=== PATIENT | female | born 1985 | race African-American/Black ===

== ENCOUNTER 2017-01-14 01:13 | Emergency (ER) | payer MEDICAID ==
[~2017-01-14] VITALS: Ht 170.2 cm; Wt 91.0 kg
[~2017-01-14 01:13] MED LIST: trimethoprim
[2017-01-14 01:53] VITALS: BP 138/99
[2017-01-14] MEDS ORDERED: TETANUS, DIPHTHERIA, PERTUSSIS VAC/PF 0.5ML (>7YR OLD) IM ONE (02:30)
[2017-01-14] MEDS ORDERED: LIDOCAINE HCL/EPINEPHRINE 1%-EPI 1:100,000 20 ML VIAL MC ONE (02:30)
[2017-01-14] MEDS ORDERED: ACETAMINOPHEN 325MG TABLET PO ONE (02:30)
[2017-01-14] MEDS ORDERED: BACITRACIN ZINC OINT UDPKT TOP ONE (02:30)
[2017-01-14] MEDS ORDERED: LIDOCAINE HCL/EPINEPHRINE 1%-EPI 1:100,000 30 ML VIAL INFIL ONE (03:15)
== END 2017-01-14 04:00 | disposition home or self-care (01) ==
LOC: ER 01:13
DX: S81.811A Laceration without foreign body, right lower leg, initial encounter (principal); F12.10 Cannabis abuse, uncomplicated; Z98.890 Other specified postprocedural states; W06.XXXA Fall from bed, initial encounter; Y93.89 Activity, other specified; Y92.89 Other specified places as the place of occurrence of the external cause; Y99.8 Other external cause status
CPT/HCPCS: 12001; 90715; 99283; Z7610